=== PATIENT | male | born 1945 | race Caucasian/White ===

== ENCOUNTER 2023-07-01 19:26 | Emergency (ER) | payer OTHER ==
[~2023-07-01] VITALS: Ht 177.8 cm; Wt 72.0 kg
[2023-07-01 19:36] VITALS: O2SAT 98
[2023-07-01 22:42] LABS: BASOPHILS % 0.5 % (0.0-2.0); EOSINOPHILS % 2.4 % (0.0-5.0); HEMATOCRIT. 35.6 % (42.0-52.0); HEMOGLOBIN. 11.8 g/dL (14.0-18.0); LYMPHOCYTES % 14.9 % (20.0-50.0); MEAN CORPUSCULAR HEMOGLOBIN 31.1 pg (28.0-32.0); MEAN CORPUSCULAR HGB CONC 33.1 g/dL (31.0-37.0); MEAN CORPUSCULAR VOLUME 94.1 fL (80.0-94.0); MEAN PLATELET VOLUME 10.7 fl (7.4-10.4); MONOCYTES % 6.6 % (2.0-8.0); NEUTROPHILS % 75.6 % (40.0-76.0); PLATELET 138 x1000/uL (130-400); RED BLOOD CELL COUNT 3.78 mill/uL (4.7-6.1); RED CELL DISTRIBUTION WIDTH 15.2 % (11.6-14.6); WHITE BLOOD COUNT 11.1 x1000/uL (4.5-11.0)
[2023-07-01 22:58] LABS: ALANINE AMINOTRANSFERASE 13 IU/L (10-49); ALBUMIN 3.5 g/dL (3.2-4.8); ASPARTATE AMINOTRANSFERASE 14 IU/L (<34); BILIRUBIN TOTAL 0.6 mg/dL (0.1-1.0); CALCIUM 8.8 mg/dL (8.7-10.4); CARBON DIOXIDE 26 mEq/L (21-32); CHLORIDE 109 mEq/L (98-107); CREATININE 0.7 mg/dL (0.6-1.3); GLUCOSE 150 mg/dL (70-105); POTASSIUM 3.6 mEq/L (3.5-5.1); SODIUM 141 mEq/L (136-145); TROPONIN I HIGH SENSITIVITY 41 ng/L (3.0-53); UREA NITROGEN BLOOD 21 mg/dL (9-23)
[2023-07-02 00:15] VITALS: TEMP 98.1
[2023-07-02] MEDS: ACETAMINOPHEN 325MG TABLET PO ONE (00:15)
[2023-07-02] MEDS: IOHEXOL-350 100 ML BOTTLE ONE (03:38)
[2023-07-02 04:25] VITALS: BP 114/83; PULSE 95; RESP 19
== END 2023-07-02 04:31 | disposition left against medical advice (07) ==
LOC: ER 19:26 → EDBEDREQDT 07-02 01:22 → EDBEDREQTM 07-02 01:22 → EDBEDREQ 07-02 01:22 → ER 07-02 04:31
DX: R07.89 Other chest pain (principal); E11.9 Type 2 diabetes mellitus without complications; E78.00 Pure hypercholesterolemia, unspecified; I10 Essential (primary) hypertension; I25.10 Atherosclerotic heart disease of native coronary artery without angina pectoris; Z86.73 Personal history of transient ischemic attack (TIA), and cerebral infarction without residual deficits
CPT/HCPCS: 99285; 71045; 80053; 83880; 85025; 84484; 36415; 93005; 71275; Q9967